=== PATIENT | male | born 1975 | race Caucasian/White ===

== ENCOUNTER 2017-07-26 16:12 | Emergency (ER) | payer MEDICAID, OTHER ==
[~2017-07-26] VITALS: Ht 157.5 cm; Wt 55.0 kg
[2017-07-26 17:00] LABS: AMPHETAMINE SCREEN, URINE Positive (Negative); BARBITURATE SCREEN, URINE Negative (Negative); BENZODIAZEPINE SCREEN, URINE Negative (Negative); CANNABINOID SCREEN, URINE Positive (Negative); COCAINE SCREEN, URINE Negative (Negative); METHADONE SCREEN, URINE Negative (Negative); OPIATE SCREEN, URINE Negative (Negative)
[2017-07-26 18:15] VITALS: BP 138/78
== END 2017-07-26 18:19 | disposition home or self-care (01) ==
LOC: ED 17:56
DX: F22 Delusional disorders (principal); F15.10 Other stimulant abuse, uncomplicated; J45.909 Unspecified asthma, uncomplicated; F32.9 Major depressive disorder, single episode, unspecified
CPT/HCPCS: 80307; 99284

== ENCOUNTER 2018-12-07 15:43 | Observation (INO) | payer MEDICAID ==
[~2018-12-07] VITALS: Ht 157.5 cm; Wt 57.9 kg
[2018-12-07] MEDS ORDERED: ASPIRIN 325 MG TABLET PO STA (15:45)
[2018-12-07] MEDS ORDERED: BIVALIRUDIN 250 MG ONE (15:48)
[2018-12-07] MEDS ORDERED: LIDOCAINE 1%, 20ML ONE (15:48)
[2018-12-07] MEDS ORDERED: MIDAZOLAM 1 MG/ML, 5ML ONE (15:48)
[2018-12-07] MEDS ORDERED: FENTANYL PF 100 MCG/2ML ONE (15:48)
[2018-12-07] MEDS ORDERED: SODIUM CHLORIDE 0.9%, 500ML IVBOLUS ONE (16:00)
[2018-12-07] MEDS ORDERED: PLEASE ENTER HEIGHT AND WEIGHT MC SCH (16:00)
[2018-12-07 16:04] LABS: BASOPHILS # (AUTO) 0.06 x10^3/uL (0-0.1); BASOPHILS % (AUTO) 1 % (0-1); EOSINOPHILS # (AUTO) 0.16 x10^3/uL (0-0.4); EOSINOPHILS % (AUTO) 2 % (1-7); LYMPHOCYTES # (AUTO) 2.12 x10^3/uL (1-3.4); LYMPHOCYTES % (AUTO) 22 % (22-44); MD NO; MEAN CORPUSCULAR HEMOGLOBIN 31.4 pg (27.5-34.5); MEAN CORPUSCULAR HGB CONC 33.1 g/dL (33.2-36.2); MEAN PLATELET VOLUME 7.3 fL (7.4-10.4); MONOCYTES # (AUTO) 0.72 x10^3/uL (0.2-0.8); MONOCYTES % (AUTO) 7 % (2-9); NEUTROPHILS # (AUTO) 6.79 x10^3/uL (1.8-6.8); NEUTROPHILS % (AUTO) 69 % (42-75); PLATELET COUNT 324 x10^3/uL (130-400); RED BLOOD COUNT 5.05 x10^6/uL (4.38-5.82); RED CELL DISTRIBUTION WIDTH 14.3 % (9.4-14.8)
[2018-12-07 16:07] LABS: PROTHROMBIN TIME 10.5 Seconds (9.6-11.5)
[2018-12-07 16:10] LABS: TROPONIN I < 0.015 ng/mL (0.000-0.045)
[2018-12-07] MEDS ORDERED: ONDANSETRON ODT 4 MG PO PRN (18:00)
[2018-12-07] MEDS ORDERED: BISACODYL 10 MG SUPP PR PRN (18:00)
[2018-12-07] MEDS ORDERED: ONDANSETRON 2MG/ML, 2ML IVPush PRN (18:00)
[2018-12-07] MEDS ORDERED: ALBUTEROL/IPRATROPIUM 2.5MG/0.5MG, 3 ML HHN SCH (18:00)
[2018-12-07] MEDS ORDERED: POLYETHYLENE GLYCOL 17 GM PACKET PO PRN (18:00)
[2018-12-07] MEDS ORDERED: ACETAMINOPHEN 325 MG TABLET PO PRN (18:00)
[2018-12-07] MEDS ORDERED: MAALOX/HYOSCYAMINE/LIDOCAINE 45 ML BTL PO PRN (18:00)
[2018-12-07] MEDS ORDERED: LABETALOL 5MG/ML, 20ML IVPush PRN (18:00)
[2018-12-07] MEDS ORDERED: DOCUSATE 100 MG CAPSULE PO PRN (18:00)
[2018-12-07] MEDS ORDERED: NITROGLYCERIN 0.4 MG BOTTLE (25 TABS) SL PRN (18:00)
[2018-12-07] MEDS ORDERED: NICOTINE 7 MG/24 HR PATCH.TD24 TD SCH (18:00)
[2018-12-07] MEDS ORDERED: ENALAPRILAT 1.25 MG/ML, 2ML IVPush PRN (18:00)
[2018-12-07 18:15] VITALS: BP_SYST 118; BP_SYST 122; BP_DIAS 73; BP_DIAS 80
[2018-12-07 18:19] LABS: ANION GAP 6 mmol/L (5-15); CALCIUM 8.7 mg/dL (8.5-10.1); CHLORIDE 109 mmol/L (98-107); CREATININE 1.07 mg/dL (0.7-1.3)
[2018-12-07 18:23] LABS: TROPONIN I < 0.015 ng/mL (0.000-0.045)
[2018-12-07 19:45] LABS: MICROSCOPIC NOT IND
[2018-12-07 19:50] LABS: CULTURE INDICATED? NO
[2018-12-07 19:55] LABS: AMPHETAMINE SCREEN, URINE Negative (Negative); BARBITURATE SCREEN, URINE Negative (Negative); BENZODIAZEPINE SCREEN, URINE Negative (Negative); CANNABINOID SCREEN, URINE Positive (Negative); COCAINE SCREEN, URINE Negative (Negative); METHADONE SCREEN, URINE Negative (Negative); OPIATE SCREEN, URINE Negative (Negative)
[2018-12-07] MEDS ORDERED: FAMOTIDINE 20 MG TABLET ONE (21:23)
[2018-12-07] MEDS: FAMOTIDINE 20 MG/2 ML IVPush SCH (21:26)
[2018-12-08 00:01] LABS: TROPONIN I < 0.015 ng/mL (0.000-0.045)
[2018-12-08] MEDS: ALBUTEROL/IPRATROPIUM 2.5MG/0.5MG, 3 ML HHN SCH ×3 (02:13→15:45)
[2018-12-08 02:25] VITALS: BP 116/72
[2018-12-08 05:40] VITALS: BP_SYST 103; BP_SYST 106; BP_SYST 119; BP_DIAS 72; BP_DIAS 75
[2018-12-08] MEDS ORDERED: ASPIRIN 325 MG TABLET EC PO SCH (06:00)
[2018-12-08 06:09] LABS: BASOPHILS # (AUTO) 0.06 x10^3/uL (0-0.1); BASOPHILS % (AUTO) 1 % (0-1); EOSINOPHILS % (AUTO) 2 % (1-7); LYMPHOCYTES # (AUTO) 2.06 x10^3/uL (1-3.4); LYMPHOCYTES % (AUTO) 22 % (22-44); MD NO; MEAN CORPUSCULAR HEMOGLOBIN 31.1 pg (27.5-34.5); MEAN CORPUSCULAR HGB CONC 32.6 g/dL (33.2-36.2); MEAN CORPUSCULAR VOLUME 95.3 fL (81-97); MEAN PLATELET VOLUME 7.4 fL (7.4-10.4); MONOCYTES # (AUTO) 0.83 x10^3/uL (0.2-0.8); MONOCYTES % (AUTO) 9 % (2-9); NEUTROPHILS # (AUTO) 6.11 x10^3/uL (1.8-6.8); NEUTROPHILS % (AUTO) 66 % (42-75); PLATELET COUNT 327 x10^3/uL (130-400); RED BLOOD COUNT 4.86 x10^6/uL (4.38-5.82); RED CELL DISTRIBUTION WIDTH 14.3 % (9.4-14.8)
[2018-12-08 06:29] LABS: TROPONIN I < 0.015 ng/mL (0.000-0.045)
[2018-12-08 06:49] VITALS: BP 125/84
[2018-12-08 07:33] VITALS: BP 157/97
[2018-12-08 07:34] VITALS: BP_SYST 137; BP_SYST 148; BP_DIAS 95; BP_DIAS 96
[2018-12-08] MEDS: FAMOTIDINE 20 MG/2 ML IVPush SCH (08:02)
[2018-12-08 13:04] VITALS: BP 148/97
[2018-12-08] MEDS ORDERED: ALBU8.5H8 INH (16:27)
[2018-12-08] MEDS ORDERED: FAMOTIDINE 20 MG TABLET PO SCH (21:00)
== END 2018-12-08 17:36 | disposition home or self-care (01) ==
LOC: ED 16:59 → EDIP 17:19 → INTOOBSV 17:19 → UNDOADMOB 17:19 → EDIP 17:41 → 5SO 18:13 → EDIP 18:13 → 5SO 18:13 → UNDODISOB 12-08 17:36
PROVIDERS: ADMIT Internal Medicine; ATTEND Internal Medicine
DX: J45.901 Unspecified asthma with (acute) exacerbation (principal); R55 Syncope and collapse; R42 Dizziness and giddiness; I10 Essential (primary) hypertension; J43.0 Unilateral pulmonary emphysema [MacLeod's syndrome]; K21.9 Gastro-esophageal reflux disease without esophagitis; F12.90 Cannabis use, unspecified, uncomplicated; F17.200 Nicotine dependence, unspecified, uncomplicated; Z82.5 Family history of asthma and other chronic lower respiratory diseases; Z88.1 Allergy status to other antibiotic agents
CPT/HCPCS: 0399T; 36415; 71045; 71250; 80047; 80048; 80307; 81003; 83735; 84484; 85025; 85610; 85730; 93005; 93306; 94640; 96374; 96376; 99285; G0378; J3490; J7040; J7620; 96360; J0583; J2250; J3010

== ENCOUNTER 2021-02-26 17:32 | Emergency (ER) | payer MEDICAID ==
[~2021-02-26] VITALS: Ht 157.5 cm; Wt 49.0 kg
[~2021-02-26 17:32] MED LIST: ALBU8.5H8 INH
[2021-02-26 18:03] VITALS: BP 145/81
--- NOTE | 2021-02-26 19:02 | NUR ---
PT YELLING AND SREAMING AT STAFF. PLACED BACK IN THE LOBBY AND CONTINUED TO SCREAM. SECURITY CALLED
== END 2021-02-26 19:04 | disposition left against medical advice (07) ==
LOC: ED 18:58
DX: F29 Unspecified psychosis not due to a substance or known physiological condition (principal)
CPT/HCPCS: 99281